=== PATIENT | female | born 1950 | race Caucasian/White ===

== ENCOUNTER 2021-09-05 09:46 | Inpatient (IN) ==
[2021-09-05] MEDS ORDERED: ceFAZolin 1 GM VIAL IV ONE ×2 (10:10→10:42)
--- NOTE | 2021-09-05 10:28 | Emergency Department Note ---
HPI General Chief complaint: Recheck/Abnormal Lab/Rx Stated complaint: infected wound Time Seen by Provider: 09/05/21 10:03 Source: patient Mode of arrival: ambulatory Limitations: no limitations History of Present Illness HPI Narrative: 71-year-old female with past medical history of rheumatoid arthritis, hypothyroidism, anemia, COPD, peripheral vascular disease, pulmonary fibrosis, and Felty syndrome presenting with right ankle swelling and pain. States she believes she suffered a bug bite about 2 weeks ago on the lateral side of her right ankle. Initially there was just some small puncture wounds but it progressed to redness, swelling, and pain in the area. She was started on an antibiotic 6 days ago and finished her last dose yesterday but the pain and swelling has persisted. She does not know what antibiotic she was given. She does not think the erythema has spread any further than where it was last week. Denies fever, numbness, weakness, paresthesias, vomiting, chest pain, or shortness of breath. Not on anticoagulation. No history of diabetes. Related Data Home Medications Medication Instructions Recorded Confirmed vitamin B complex 1 tab-cap PO QDAY 12/28/15 08/27/21 cholecalciferol (vitamin D3) PO 12/21/19 08/27/21 ohnvvodzwvwq-Mb-nact-minerals 1 tab PO DAILY 12/21/19 08/27/21 ascorbate calcium (vitamin C) 500 500 mg PO QDAY 05/28/21 08/27/21 mg tablet flaxseed oil 1,000 mg capsule 1,000 mg PO QDAY 05/28/21 08/27/21 ibuprofen 400 mg tablet 400 mg PO BID tab 06/03/21 08/27/21 Previous Rx's Medication Instructions Recorded Acapella or flutter valve #1 ea 09/30/18 omeprazole 20 mg capsule,delayed 20 mg PO QDAY #30 cap 07/03/21 release furosemide 20 mg tablet 10 mg PO QAM PRN #30 tab 07/11/21 levothyroxine 75 mcg tablet 75 mcg PO QDAY #90 tab 08/19/21 hydrocortisone 1 % topical cream 1 applic TOPICAL BID PRN #28.4 g 08/27/21 cephalexin 500 mg capsule 500 mg PO BID #14 cap 08/28/21 Allergies Allergy/AdvReac Type Severity Reaction Status Date / Time codeine AdvReac Mild jittery Verified 08/27/21 14:30 Review of Systems ROS ROS Narrative: Narrative: Constitutional: Denies fever and chills Eyes: Denies vision change ENT ED: Denies ear pain and throat pain Cardiovascular: Denies chest pain and palpitations Respiratory: Denies shortness of breath and cough Gastrointestinal: Denies abdominal pain, nausea and vomiting Genitourinary: Denies dysuria and frequency Musculoskeletal: Denies back pain Integumentary: Reports as per HPI Neurological: Denies headache and weakness Psychiatric: Denies anxiety and depression Endocrine: Denies fatigue and heat or cold intolerance Hematological/Lymphatic: Denies easy bleeding and easy bruising PFSH Narrative Patient History Narrative: Narrative: Medical/Surgical/Family History All Active Problems (Updated 09/05/21 @ 12:38 by Ousmane Ordoñez MD) Proteinuria (Chronic) Rheumatoid arthritis (Acute) Osteoarthrosis (Chronic) Iron deficiency anemia (Chronic) Hypothyroidism (Chronic) Chondromalacia, patella (Chronic) S/P partial hysterectomy (Chronic) Arthralgia (Chronic) Sinusitis, chronic (Chronic) COPD (chronic obstructive pulmonary disease) (Chronic) Palpitations (Chronic) Varicose veins of lower extremities (Chronic) Fatigue (Chronic) Depression (Chronic) Anxiety (Chronic) Other decreased white blood cell count (Chronic) Encounter for long-term (current) use of medications (Acute) Microalbuminuria (Chronic) Splenomegaly (Chronic) Atypical chest pain (Chronic) Abnormal weight loss (Chronic) Headache (Chronic) Shingles (Chronic) Postmenopausal state (Chronic) Bilateral leg edema (Chronic) Pulmonary fibrosis (Chronic) Seasonal allergic rhinitis (Chronic) Irritable bowel syndrome (Chronic) Encounter for long-term current use of high risk medication (Chronic) Leukopenia (Chronic) Cough (Chronic) Felty's syndrome (Chronic) Subcutaneous rheumatoid nodule (Chronic) Wellness examination (Chronic) Unexplained weight loss (Acute) HLD (hyperlipidemia) (Chronic) ILD (interstitial lung disease) (Chronic) Incontinence of urine in female (Acute) Anemia (Chronic) HARMONY (obstructive sleep apnea) (Chronic) Aspiration into airway (Chronic) Bronchiectasis (Chronic) Osteopenia (Acute) Atopic dermatitis (Chronic) Rash/skin eruption (Acute) Medicare annual wellness visit, initial (Acute) Encounter for HCV screening test for low risk patient (Acute) Generalized weakness (Acute) Neutropenia (Acute) Hypotension (Acute) Atrial fibrillation with RVR (Acute) Hospital discharge follow-up (Acute) Pericarditis (Acute) Medicare annual wellness visit, initial (Acute) Cellulitis of right leg (Acute) Medical History Abnormal weight loss Anemia Anxiety Arthralgia Aspiration into airway Atopic dermatitis Atrial fib/flutter, transient Atrial fibrillation with RVR Atypical chest pain Bilateral leg edema Bronchiectasis Chondromalacia, patella COPD (chronic obstructive pulmonary disease) Cough Depression Encounter for long-term (current) use of medications Encounter for long-term current use of high risk medication Fatigue Felty's syndrome Headache HLD (hyperlipidemia) Hospital discharge follow-up Hypotension Hypothyroidism ILD (interstitial lung disease) Incontinence of urine in female Iron deficiency anemia Irritable bowel syndrome Leukopenia Medicare annual wellness visit, initial Medicare annual wellness visit, initial HARMONY (obstructive sleep apnea) Sleep study split-night 06/10/2018 demonstrating mild sleep apnea and good response to 7 cm pressure CPAP Osteoarthrosis Osteopenia Other decreased white blood cell count Palpitations Pericarditis Postmenopausal state Proteinuria Pulmonary fibrosis Rheumatoid arthritis Seasonal allergic rhinitis Shingles Sinusitis, chronic Splenomegaly Subcutaneous rheumatoid nodule Varicose veins of lower extremities Wellness examination 02/2017 Surgical History S/P partial hysterectomy 1979 Family History Mother Cerebrovascular accident (CVA) Arthritis Brother Hemorrhagic diathesis Diabetes mellitus Father Cardiac arrest Daughter Asthma Son Hemorrhagic diathesis Epilepsy Aunt Leukemia Social History Smoking Status: Former smoker Alcohol Intake Frequency: does not drink Substance Use: does not use Exam Narrative Narrative: Narrative: General Limitations: no limitations General appearance: Present alert and in no apparent distress Head Head: Present atraumatic and normocephalic Eye Eye: Present normal appearance, PERRL and EOMI; Absent scleral icterus and conjunctival injection ENT ENT: Present mucous membranes moist Neck Neck: Present trachea midline; Absent lymphadenopathy and thyromegaly Chest Chest: Present symmetric chest wall rise Respiratory Respiratory: Present normal lung sounds bilaterally; Absent respiratory distress, wheezes, stridor, accessory muscle use and prolonged expiratory phase Cardiovascular Cardiovascular: Present regular rate and normal rhythm; Absent systolic murmur and diastolic murmur Adbominal Abdominal: Present soft; Absent distention, tenderness, guarding, rebound, rigidity, organomegaly and mass Expanded Lower Extremity Ankle: Present tenderness, swelling, erythema and other (2 scabbed ulceration areas over the lateral right distal lower leg with surrounding erythema extending into the top of the foot and one third up the leg. Area is swollen, erythematous, and warm. Range of motion intact, no sensory deficits. 2+ DP pulse.) Back Back: Absent CVA tenderness (R), CVA tenderness (L) and spinous process te nderness Neurological Neurological: Present alert and oriented X3 Psychiatric Psychiatric: Present normal affect and normal mood Skin Skin: Present warm (WNL) and dry Course Consultations Consultation #1: Discussed admission for right lower leg cellulitis with Dr. Collier. Time: 12:32 Vital Signs Vital signs: Vital Signs Temperature 97.5 F 09/05/21 09:47 Pulse Rate 99 H 09/05/21 09:47 Respiratory Rate 19 09/05/21 09:47 Blood Pressure 121/65 09/05/21 09:47 Temperature 97.5 F 09/05/21 09:47 Pulse Rate 64 09/05/21 12:00 Respiratory Rate 19 09/05/21 09:47 Blood Pressure 131/73 09/05/21 12:00 Pulse Oximetry (%) 100 09/05/21 12:00 MDM MDM Narrative Medical decision making narrative: 71-year-old female presenting with right leg swelling and redness. Right lateral ankle appears cellulitic with erythema extending to the top of the foot and slightly up the leg. No streaking. Vital signs normal. She has already completed a 1 week course of antibiotics. Will obtain labs, x-ray, and give dose of IV cefazolin in the ED. Labs notable for neutropenia which is chronic and secondary to her Felty syndr ome. Her ANC is slightly more elevated than her baseline which may indicate a more systemic infection. X-ray shows tissue edema consistent with cellulitis and possible lucencies of the lateral malleolus which may indicate early osteomyelitis. Given her neutropenia and failed outpatient antibiotic regimen, will admit for IV antibiotics and monitoring. Dose of vancomycin ordered. Discussed with admitting hospitalist, Dr. Everett. Lab Data Lab results reviewed: Yes I reviewed the patient's lab results. Result diagrams: 09/05/21 10:10 09/05/21 10:10 Labs: Lab Results 09/05/21 09/05/21 Range/Units 10:10 10:10 WBC 1.6 L (4.5-11.0) K/mcL RBC 4.70 (3.59-5.38) M/mcL Hgb 11.4 (11.2-15.7) g/dL Hct 36.2 (34.1-44.9) % MCV 77.0 L (80.0-100.0) fL MCH 24.3 L (26.0-34.0) pg MCHC 31.5 (31.0-36.0) g/dL RDW 19.2 H (11.5-14.5) % Plt Count 173 (140-440) K/mcL MPV 9.9 (7.4-10.4) fL Neut % (Auto) 14.8 L (38.0-78.0) % Lymph % (Auto) 46.8 (15.5-49.0) % [place] % (Auto) 33.3 H (1.0-12.0) % Eos % (Auto) 4.5 (0.0-7.0) % Baso % (Auto) 0.6 (0.0-2.0) % Lymph # (Auto) 0.73 L (1.50-4.80) K/mcL [place] # (Auto) 0.52 (0.10-0.90) K/mcL Eos # (Auto) 0.07 (0.00-0.70) K/mcL Baso # (Auto) 0.01 (0.00-0.30) K/mcL Absolute Neutrophils 0.23 L* (1.80-8.00) K/mcL Sodium 136 (133-145) mmol/L Potassium 4.0 (3.3-5.1) mmol/L Chloride 103 (96-108) mmol/L Carbon Dioxide 28 (22-30) mmol/L Anion Gap 5.0 L (8.0-16.0) BUN 14 (8-23) mg/dL Creatinine 0.5 L (0.6-1.1) mg/dL GFR Calculation 96 Glucose 85 (70-105) mg/dL Calcium 8.4 L (8.6-10.4) mg/dL Total Bilirubin 0.4 (0.1-1.0) mg/dL AST 22 (<32) U/L ALT 11 (<40) U/L Alkaline Phosphatase 60 (39-117) U/L C-Reactive Protein 1.90 H (0.03-0.80) mg/dL Total Protein 7.6 (5.9-8.4) gm/dL Albumin 3.6 (3.2-5.2) gm/dL Globulin 4.0 H (2.2-3.7) gm/dL Albumin/Globulin Ratio 0.9 L (1.0-2.3) Radiology Data Radiology results reviewed: Yes I reviewed the patient's radiology results. Radiology results narrative: Ordering Physician: Ousmane Ordoñez M.D. Date of Service: 09/05/21 Procedure(s): XR ankle RT complete 3VW Accession Number(s): [id number] CLINICAL INFORMATION: cellulitis, ulcerations COMPARISON: None. FINDINGS: Moderate diffuse soft tissue swelling is compatible cellulitis. There are two radiolucent foci in the distal lateral malleolus. One appears to be eroding the articular surface. Each of these approximately 10 mm. No other osseous abnormalities. The ankle mortise and talocalcaneal joints normal with alignment arthritic change. IMPRESSION: Moderate diffuse soft tissue swelling compatible cellulitis Two lucent foci in the distal lateral malleolus each approximately 10 mm. these are likely degenerative but could represent foci of osteomyelitis Interpreted and Authenticated by: Silverio Castro 09/05/21 Pulse Oximetry Data Pulse Ox %: 100 Interpretation: normal Discharge Plan Patient/Caregiver Discharge Instructions Pt seen by [facility]/PA only: No Clinical Impression: Cellulitis of right leg Patient Disposition: Xfer As Inpt ([facility]) Condition: Fair Follow up with: Kenia Desai DO [Primary Care Provider] - Prescriptions: No Action omeprazole 20 mg capsule,delayed release(DR/EC) 20 mg PO QDAY Qty: 30 RF: 5 furosemide 20 mg tablet 10 mg PO QAM PRN (Reason: edema) Qty: 30 RF: 1 levothyroxine 75 mcg tablet 75 mcg PO QDAY Qty: 90 RF: 0 cephalexin 500 mg capsule 500 mg PO BID Qty: 14 RF: 0 vitamin B complex [B Complex-Vitamin B12] tablet 1 tab-cap PO QDAY RF: 0 cholecalciferol (vitamin D3) PO RF: 0 tpkcthpxbthj-Xa-tnhd-minerals tablet 1 tab PO DAILY RF: 0 (DME) Acapella or flutter valve Qty: 1 RF: 0 ascorbate calcium (vitamin C) 500 mg tablet 500 mg PO QDAY RF: 0 flaxseed oil 1,000 mg capsule 1,000 mg PO QDAY RF: 0 hydrocortisone 1 % cream 1 applic topical BID PRN (Reason: itching) Qty: 28.4 RF: 2 ibuprofen 400 mg tablet 400 mg PO BID RF: 0
[2021-09-05 11:21] LABS: Basophils # (Auto) 0.01 K/mcL (0.00-0.30); Basophils % (Auto) 0.6 % (0.0-2.0); Eosinophils # (Auto) 0.07 K/mcL (0.00-0.70); Eosinophils % (Auto) 4.5 % (0.0-7.0); Hematocrit 36.2 % (34.1-44.9); Hemoglobin 11.4 g/dL (11.2-15.7); Lymphocytes # (Auto) 0.73 K/mcL (1.50-4.80); Lymphocytes % (Auto) 46.8 % (15.5-49.0); Mean Corpuscular HGB Conc 31.5 g/dL (31.0-36.0); Mean Platelet Volume 9.9 fL (7.4-10.4); Monocytes # (Auto) 0.52 K/mcL (0.10-0.90); Monocytes % (Auto) 33.3 % (1.0-12.0); Neutrophils % (Auto) 14.8 % (38.0-78.0); Platelet Count 173 K/mcL (140-440); Red Cell Distribution Width 19.2 % (11.5-14.5); WBC 1.6 K/mcL (4.5-11.0)
[2021-09-05 11:30] LABS: ALT/SGPT 11 U/L (<40); AST/SGOT 22 U/L (<32); Albumin 3.6 gm/dL (3.2-5.2); Albumin/Globulin Ratio 0.9 (1.0-2.3); Alkaline Phosphatase 60 U/L (39-117); Bilirubin,Total 0.4 mg/dL (0.1-1.0); Blood Urea Nitrogen 14 mg/dL (8-23); Calcium 8.4 mg/dL (8.6-10.4); Carbon Dioxide 28 mmol/L (22-30); Chloride 103 mmol/L (96-108); Glomerular Filtration Rate 96; Glucose 85 mg/dL (70-105)
--- NOTE | 2021-09-05 11:44 | XRay Report ---
CLINICAL INFORMATION: cellulitis, ulcerations COMPARISON: None. FINDINGS: Moderate diffuse soft tissue swelling is compatible cellulitis. There are two radiolucent foci in the distal lateral malleolus. One appears to be eroding the articular surface. Each of these approximately 10 mm. No other osseous abnormalities. The ankle mortise and talocalcaneal joints normal with alignment arthritic change. IMPRESSION: Moderate diffuse soft tissue swelling compatible cellulitis Two lucent foci in the distal lateral malleolus each approximately 10 mm. these are likely degenerative but could represent foci of osteomyelitis Interpreted and Authenticated by: Silverio Castro 09/05/21
[2021-09-05] MEDS ORDERED: VANCOMYCIN 1,500 MG in 0.9 % SODIUM CHLORIDE 500 ML IV ONE (12:30)
--- NOTE | 2021-09-05 13:11 | Internal Med History&Physical ---
HPI History of Present Illness Patient information: Note initiated : 09/05/21 at 12:56 pm Service Date, if different from initiated Date: [] Patient: Cyndie Carr a 71 y/o F admitted on for infected wound. Chief Complaint: [] History of present illness: Ms. Carr is a 71 year old F Patient presents with right ankle redness and swelling. Patient states she first saw her primary care doctor almost a week and half ago and was prescribed an antibiotic. 4 days later on 31 August she went to [facility] ER. She was instructed to finish the course of antibiotics. She states she believes she was bitten by a bug or possibly scratched her skin and states that she had 2 little black spots when she first presented to the doctor and then when she went to [place] ER they were larger. Patient states that her redness although seems to have improved a little bit she has had increased swelling and increased pain. The black spots on her lateral ankle have enlarged. Patient denies fever chills. 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 Review of Systems: Pertinent positives as above. Denies headache/fever/chills/nausea/vomiting/chest or abdominal pain/cough/dyspnea/diarrhea. Remaining 10 point review of system reviewed negative PFSH PFSH All Active Problems (Updated 09/05/21 @ 12:38 by Ousmane Ordoñez MD) Proteinuria (Chronic) Rheumatoid arthritis (Acute) Osteoarthrosis (Chronic) Iron deficiency anemia (Chronic) Hypothyroidism (Chronic) Chondromalacia, patella (Chronic) S/P partial hysterectomy (Chronic) Arthralgia (Chronic) Sinusitis, chronic (Chronic) COPD (chronic obstructive pulmonary disease) (Chronic) Palpitations (Chronic) Varicose veins of lower extremities (Chronic) Fatigue (Chronic) Depression (Chronic) Anxiety (Chronic) Other decreased white blood cell count (Chronic) Encounter for long-term (current) use of medications (Acute) Microalbuminuria (Chronic) Splenomegaly (Chronic) Atypical chest pain (Chronic) Abnormal weight loss (Chronic) Headache (Chronic) Shingles (Chronic) Postmenopausal state (Chronic) Bilateral leg edema (Chronic) Pulmonary fibrosis (Chronic) Seasonal allergic rhinitis (Chronic) Irritable bowel syndrome (Chronic) Encounter for long-term current use of high risk medication (Chronic) Leukopenia (Chronic) Cough (Chronic) Felty's syndrome (Chronic) Subcutaneous rheumatoid nodule (Chronic) Wellness examination (Chronic) Unexplained weight loss (Acute) HLD (hyperlipidemia) (Chronic) ILD (interstitial lung disease) (Chronic) Incontinence of urine in female (Acute) Anemia (Chronic) HARMONY (obstructive sleep apnea) (Chronic) Aspiration into airway (Chronic) Bronchiectasis (Chronic) Osteopenia (Acute) Atopic dermatitis (Chronic) Rash/skin eruption (Acute) Medicare annual wellness visit, initial (Acute) Encounter for HCV screening test for low risk patient (Acute) Generalized weakness (Acute) Neutropenia (Acute) Hypotension (Acute) Atrial fibrillation with RVR (Acute) Hospital discharge follow-up (Acute) Pericarditis (Acute) Medicare annual wellness visit, initial (Acute) Cellulitis of right leg (Acute) Medical History Abnormal weight loss Anemia Anxiety Arthralgia Aspiration into airway Atopic dermatitis Atrial fib/flutter, transient Atrial fibrillation with RVR Atypical chest pain Bilateral leg edema Bronchiectasis Chondromalacia, patella COPD (chronic obstructive pulmonary disease) Cough Depression Encounter for long-term (current) use of medications Encounter for long-term current use of high risk medication Fatigue Felty's syndrome Headache HLD (hyperlipidemia) Hospital discharge follow-up Hypotension Hypothyroidism ILD (interstitial lung disease) Incontinence of urine in female Iron deficiency anemia Irritable bowel syndrome Leukopenia Medicare annual wellness visit, initial Medicare annual wellness visit, initial HARMONY (obstructive sleep apnea) Sleep study split-night 06/10/2018 demonstrating mild sleep apnea and good response to 7 cm pressure CPAP Osteoarthrosis Osteopenia Other decreased white blood cell count Palpitations Pericarditis Postmenopausal state Proteinuria Pulmonary fibrosis Rheumatoid arthritis Seasonal allergic rhinitis Shingles Sinusitis, chronic Splenomegaly Subcutaneous rheumatoid nodule Varicose veins of lower extremities Wellness examination 02/2017 Surgical History S/P partial hysterectomy 1980 Family History Mother Cerebrovascular accident (CVA) Arthritis Brother Hemorrhagic diathesis Diabetes mellitus Father Cardiac arrest Daughter Asthma Son Hemorrhagic diathesis Epilepsy Aunt Leukemia Social History marital status: single physical activity: other details: Legs frequency: 1-2 times per week smoking status: Former smoker quit date: 11/16/91 pack-years: 30 alcohol intake frequency: does not drink substance use type: does not use MEDS/ALLERGIES Home Medications and Allergies Home Medications Medication Instructions Recorded Confirmed Type vitamin B complex 1 tab-cap PO QDAY 12/28/15 08/27/21 History Acapella or flutter valve #1 ea 09/30/18 08/27/21 Rx cholecalciferol (vitamin D3) PO 12/21/19 08/27/21 History priuybjwingj-Zs-ybdt-minerals 1 tab PO DAILY 12/21/19 08/27/21 History ascorbate calcium (vitamin C) 500 500 mg PO QDAY 05/28/21 08/27/21 History mg tablet flaxseed oil 1,000 mg capsule 1,000 mg PO QDAY 05/28/21 08/27/21 History ibuprofen 400 mg tablet 400 mg PO BID tab 06/03/21 08/27/21 History omeprazole 20 mg capsule,delayed 20 mg PO QDAY #30 cap 07/03/21 08/27/21 Rx release furosemide 20 mg tablet 10 mg PO QAM PRN #30 tab 07/11/21 08/27/21 Rx levothyroxine 75 mcg tablet 75 mcg PO QDAY #90 tab 08/19/21 08/27/21 Rx hydrocortisone 1 % topical cream 1 applic TOPICAL BID PRN #28.4 g 08/27/21 08/27/21 Rx cephalexin 500 mg capsule 500 mg PO BID #14 cap 08/28/21 Rx Allergies Allergy/AdvReac Type Severity Reaction Status Date / Time codeine AdvReac Mild jittery Verified 08/27/21 14:30 EXAM Constitutional Vitals: Temp Pulse Resp BP Pulse Ox 97.5 F 66 19 131/87 100 09/05/21 09:47 09/05/21 12:46 09/05/21 09:47 09/05/21 12:46 09/05/21 12:46 Exam: General: Alert, Awake, No acute Distress Eyes/N/T: EOMI, PERRL, Head/Neck: neck supple, normocephalic atraumatic CV: RRR, No murmurs, normal s1/s2 Pulm: Clear b/l, no wheezing/rhonchi/rales Abd: soft, nontender, +BS x4 Ext: no clubbing/cyanosis/edema to LLE. Right ankle/foot with erythema/edema/TTP & 2 small superficial necrotic lesions lateral ankle Neuro: Alert, no focal deficits, moves all extremities, CN 2-12 grossly intact, symmetrical strength b/l upper/lower, sensations intact b/l upper/lower Skin: warm/dry DATA Data Completed and Pending Labs: Labs from last 24 hours 09/05/21 09/05/21 10:10 10:10 WBC 1.6 L RBC 4.70 Hgb 11.4 Hct 36.2 MCV 77.0 L MCH 24.3 L MCHC 31.5 RDW 19.2 H Plt Count 173 MPV 9.9 Neut % (Auto) 14.8 L Lymph % (Auto) 46.8 [place] % (Auto) 33.3 H Eos % (Auto) 4.5 Baso % (Auto) 0.6 Lymph # (Auto) 0.73 L [place] # (Auto) 0.52 Eos # (Auto) 0.07 Baso # (Auto) 0.01 Absolute Neutrophils 0.23 L* ESR Pending Sodium 136 Potassium 4.0 Chloride 103 Carbon Dioxide 28 Anion Gap 5.0 L BUN 14 Creatinine 0.5 L GFR Calculation 96 Glucose 85 Calcium 8.4 L Total Bilirubin 0.4 AST 22 ALT 11 Alkaline Phosphatase 60 C-Reactive Protein 1.90 H Total Protein 7.6 Albumin 3.6 Globulin 4.0 H Albumin/Globulin Ratio 0.9 L A/P Narrative A/P Narrative: A: *Right Ankle cellulitis with tissue necrosis: failded outpt abx *RA/Felty's syndrome w/chronic neutropenia: Follows with Dr. Mathur *Pulmonary fibrosis/bronchiectasis: Follows with Dr. Moss *h/o systolic(40/45)/diastolic(I) CHF *HARMONY: *Hypothyroidism P: -Vanco/cefepime, pending BC & mrsa screen -Podiatry/wound consult -MRI ankle -Reconcile home medications -pt/ot -ppx: lovenox full code Time Spent With Patient Time: Total time spent is greater than 50% in coordination of care (as documented) at patient's floor/unit and/or counseling patient:
[2021-09-05 13:12] LABS: Erythrocyte Sedimentation Rate 20 mm/hr (0-20)
--- NOTE | 2021-09-05 13:47 | Orthopedic Consult Note ---
HPI Data of Consult Consult date: 09/05/21 Primary Care Provider: Kenia Desai DO Consult Narrative cc:: Chief complaint: Bug bite right leg with redness Patient is a pleasant 71-year-old lady who recently had a bug bite a couple weeks ago. Her leg became red and swollen and she obtained antibiotics for this. The redness continued to get worse and extend up her leg. Now there are 2 black spots on the side of her ankle and her pain continues to increase. The swelling has decreased somewhat. PFSH PFSH All Active Problems (Updated 09/05/21 @ 12:38 by Ousmane Ordoñez MD) Proteinuria (Chronic) Rheumatoid arthritis (Acute) Osteoarthrosis (Chronic) Iron deficiency anemia (Chronic) Hypothyroidism (Chronic) Chondromalacia, patella (Chronic) S/P partial hysterectomy (Chronic) Arthralgia (Chronic) Sinusitis, chronic (Chronic) COPD (chronic obstructive pulmonary disease) (Chronic) Palpitations (Chronic) Varicose veins of lower extremities (Chronic) Fatigue (Chronic) Depression (Chronic) Anxiety (Chronic) Other decreased white blood cell count (Chronic) Encounter for long-term (current) use of medications (Acute) Microalbuminuria (Chronic) Splenomegaly (Chronic) Atypical chest pain (Chronic) Abnormal weight loss (Chronic) Headache (Chronic) Shingles (Chronic) Postmenopausal state (Chronic) Bilateral leg edema (Chronic) Pulmonary fibrosis (Chronic) Seasonal allergic rhinitis (Chronic) Irritable bowel syndrome (Chronic) Encounter for long-term current use of high risk medication (Chronic) Leukopenia (Chronic) Cough (Chronic) Felty's syndrome (Chronic) Subcutaneous rheumatoid nodule (Chronic) Wellness examination (Chronic) Unexplained weight loss (Acute) HLD (hyperlipidemia) (Chronic) ILD (interstitial lung disease) (Chronic) Incontinence of urine in female (Acute) Anemia (Chronic) HARMONY (obstructive sleep apnea) (Chronic) Aspiration into airway (Chronic) Bronchiectasis (Chronic) Osteopenia (Acute) Atopic dermatitis (Chronic) Rash/skin eruption (Acute) Medicare annual wellness visit, initial (Acute) Encounter for HCV screening test for low risk patient (Acute) Generalized weakness (Acute) Neutropenia (Acute) Hypotension (Acute) Atrial fibrillation with RVR (Acute) Hospital discharge follow-up (Acute) Pericarditis (Acute) Medicare annual wellness visit, initial (Acute) Cellulitis of right leg (Acute) Medical History Abnormal weight loss Anemia Anxiety Arthralgia Aspiration into airway Atopic dermatitis Atrial fib/flutter, transient Atrial fibrillation with RVR Atypical chest pain Bilateral leg edema Bronchiectasis Chondromalacia, patella COPD (chronic obstructive pulmonary disease) Cough Depression Encounter for long-term (current) use of medications Encounter for long-term current use of high risk medication Fatigue Felty's syndrome Headache HLD (hyperlipidemia) Hospital discharge follow-up Hypotension Hypothyroidism ILD (interstitial lung disease) Incontinence of urine in female Iron deficiency anemia Irritable bowel syndrome Leukopenia Medicare annual wellness visit, initial Medicare annual wellness visit, initial HARMONY (obstructive sleep apnea) Sleep study split-night 06/10/2018 demonstrating mild sleep apnea and good response to 7 cm pressure CPAP Osteoarthrosis Osteopenia Other decreased white blood cell count Palpitations Pericarditis Postmenopausal state Proteinuria Pulmonary fibrosis Rheumatoid arthritis Seasonal allergic rhinitis Shingles Sinusitis, chronic Splenomegaly Subcutaneous rheumatoid nodule Varicose veins of lower extremities Wellness examination 02/2017 Surgical History S/P partial hysterectomy 1980 Family History Mother Cerebrovascular accident (CVA) Arthritis Brother Hemorrhagic diathesis Diabetes mellitus Father Cardiac arrest Daughter Asthma Son Hemorrhagic diathesis Epilepsy Aunt Leukemia Social History marital status: single physical activity: other details: Legs frequency: 1-2 times per week smoking status: Former smoker quit date: 11/16/91 pack-years: 30 alcohol intake frequency: does not drink substance use type: does not use MEDS/ALLERGIES Home Medications and Allergies Home Medications Medication Instructions Recorded Confirmed Type vitamin B complex 1 tab-cap PO QDAY 12/28/15 08/27/21 History Acapella or flutter valve #1 ea 09/30/18 08/27/21 Rx cholecalciferol (vitamin D3) PO 12/21/19 08/27/21 History frntqstpyzbv-Wq-lmps-minerals 1 tab PO DAILY 12/21/19 08/27/21 History ascorbate calcium (vitamin C) 500 500 mg PO QDAY 05/28/21 08/27/21 History mg tablet flaxseed oil 1,000 mg capsule 1,000 mg PO QDAY 05/28/21 08/27/21 History ibuprofen 400 mg tablet 400 mg PO BID tab 06/03/21 08/27/21 History omeprazole 20 mg capsule,delayed 20 mg PO QDAY #30 cap 07/03/21 08/27/21 Rx release furosemide 20 mg tablet 10 mg PO QAM PRN #30 tab 07/11/21 08/27/21 Rx levothyroxine 75 mcg tablet 75 mcg PO QDAY #90 tab 08/19/21 08/27/21 Rx hydrocortisone 1 % topical cream 1 applic TOPICAL BID PRN #28.4 g 08/27/21 08/27/21 Rx cephalexin 500 mg capsule 500 mg PO BID #14 cap 08/28/21 Rx Allergies Allergy/AdvReac Type Severity Reaction Status Date / Time codeine AdvReac Mild jittery Verified 08/27/21 14:30 Physical Examination Narrative Narrative: Narrative: Ankle & Foot right: Ankle appearance: swelling, erythema and other (To central fibular area necrotic lesions approximately 2 cm in diameter that are nonpurulent nondraining, associated with the lateral aspect and apex of swelling, consistent with puncture or insect venom is bite) Foot appearance: swelling and erythema A/P Time Spent With Patient Time: Total time spent is greater than 50% in coordination of care (as documented) at patient's floor/unit and/or counseling patient: Cellulitis with toxic skin necrosis related to insect bite Patient likely to receive incision and drainage based on MRI results if there be an abscess Debridement of necrotic tissue important with drainage of wound and any abscesses found Will determine based on MRI results
[2021-09-05] MEDS ORDERED: METOCLOPRAMIDE 10 MG/2 ML VIAL IV PRN (14:16)
[2021-09-05] MEDS ORDERED: ONDANSETRON 4 MG/2 ML VIAL IV PRN (14:16)
[2021-09-05] MEDS ORDERED: IPRATROPIUM/ALBUTEROL 3 ML AMPUL.NEB NEB PRN (14:16)
[2021-09-05] MEDS ORDERED: HYDROcodone/APAP 5/325MG TABLET PO PRN (14:16)
[2021-09-05] MEDS ORDERED: POLYETHYLENE GLYCOL 3350 17 GM PACKET PO PRN (14:16)
[2021-09-05] MEDS ORDERED: SENNOSIDES 1 TABLET PO PRN (14:16)
[2021-09-05] MEDS ORDERED: POTASSIUM CHLORIDE 20 MEQ TABLET PO PRN ×2 (14:16)
[2021-09-05] MEDS ORDERED: VANCOMYCIN PER PHARMACY IV SCH (14:16)
[2021-09-05] MEDS ORDERED: MAGNESIUM SULFATE 2 GM/50 ML BAG IV PRN (14:16)
[2021-09-05] MEDS ORDERED: POTASSIUM CHLORIDE 40 MEQ in DEXTROSE 5% IN WATER 500 ML IV PRN (14:16)
[2021-09-05] MEDS: CEFEPIME 2 GM VIAL IV SCH (16:36)
[2021-09-05] MEDS: 0.9 % SODIUM CHLORIDE 10 ML SYRINGE IV SCH ×2 (16:36→21:17)
--- NOTE | 2021-09-05 18:41 | Magnetic Resonance Report ---
CLINICAL INFORMATION: Diffuse ankle cellulitis. Evaluate for osteomyelitis. TECHNIQUE: Axial T1-T2 proton-density, coronal T1 STIR proton density and sagittal proton-density weighted images were obtained through the right ankle COMPARISON: Plain films 09/05/2021 FINDINGS: Moderate diffuse cellulitis throughout the subcutaneous fat of the ankle and visualized foot appreciated. There is a 10 mm chronic erosion in the cortex of the distal lateral malleolus. This is well-circumscribed and demonstrates decreased signal-would not be compatible with infection. Marrow signal is otherwise normal no evidence of osteomyelitis. The ankle mortise and talocalcaneal joint visualized joints of the midfoot are normal in width and alignment without arthritic change. Tendons and ligaments are normal IMPRESSION: Diffuse cellulitis. No evidence of osteomyelitis Interpreted and Authenticated by: Silverio Castro 09/05/21
[2021-09-05] MEDS: DOCUSATE SODIUM 100 MG CAPSULE PO SCH (21:11)
[2021-09-06] MEDS: CEFEPIME 2 GM VIAL IV SCH ×3 (00:20→20:14)
[2021-09-06] MEDS: 0.9 % SODIUM CHLORIDE 10 ML SYRINGE IV SCH ×3 (04:30→20:14)
--- NOTE | 2021-09-06 07:34 | Internal Med Progress Note ---
SUBJECTIVE Subjective Patient information: Note initiated : 09/06/21 at 7:30 am Service Date, if different from initiated Date: [] Patient: Cyndie Carr a 71 y/o F admitted on 09/05/21 for infected wound. Chief Complaint: [] Interval history: History of present illness: Ms. Carr is a 71 year old F Patient presents with right ankle redness and swelling. Patient states she first saw her primary care doctor almost a week and half ago and was prescribed an antibiotic. 4 days later on 31 August she went to [facility] ER. She was instructed to finish the course of antibiotics. She states she believes she was bitten by a bug or possibly scratched her skin and states that she had 2 little black spots when she first presented to the doctor and then when she went to [place] ER they were larger. Patient states that her redness although seems to have improved a little bit she has had increased swelling and increased pain. The black spots on her lateral ankle have enlarged. Patient denies fever chills. 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 09/06 Patient not postop I&D. Tolerated procedure well. Patient comfortable in bed. No overnight event or new complaints. Chronic cough. Review of Systems: denies headache/fever/chills/nausea/vomiting/chest or abdominal pain/diarrhea. Otherwise see above. Constitutional Vitals: Vital Signs Temp Pulse Resp BP Pulse Ox 98.2 F 69 18 120/71 97 09/06/21 04:00 09/06/21 04:00 09/06/21 04:00 09/06/21 04:00 09/06/21 04:00 Period Temp Pulse Resp BP Sys/Davila Pulse Ox Last 24 Hr 97.2 F-98.2 F 60-99 18-19 116-138/62-87 97-100 Intake and Output 09/05/21 09/06/21 09/06/21 21:59 05:59 13:59 Intake Total 296 1300 Output Total 500 Balance 296 1300 -500 Weight 56.245 kg Intake & Output: Intake & Output 09/05/21 09/06/21 09/06/21 21:59 05:59 13:59 Intake Total 296 1300 Output Total 500 Balance 296 1300 -500 Weight 56.245 kg Intake: IV 56 Vancomycin 1,500 mg In Sodium 56 Chloride 0.9% 500 ml @ 333.3 mls/hr IV ONCE ONE Rx#: [id number] Oral 240 1300 Output: Void Amount 500 Other: Meal Lunch Percent of Meal Consumed 100% Feeding Ability Independent Urine Color Bright Yellow Stool Consistency Loose # Voids 1 1 # Bowel Movements 1 Exam: General: Alert, Awake, No acute Distress Eyes/N/T: EOMI, , Head/Neck: neck supple, CV: RRR, No murmurs, Pulm: Clear b/l, no wheezing/rhonchi/rales Abd: soft, nontender, +BS x4 Ext: no clubbing/cyanosis/edema to LLE. Right ankle/foot in dressings Neuro: Alert, no focal deficits, moves all extremities, Skin: warm/dry OBJ DATA Labs CBC & Chem 7: 09/06/21 05:51 09/06/21 05:51 Labs: Abnormal Lab Results 09/05/21 09/05/21 10:10 10:10 WBC 1.6 L MCV 77.0 L MCH 24.3 L RDW 19.2 H Neut % (Auto) 14.[address] [place] % (Auto) 33.3 H Lymph # (Auto) 0.73 L Absolute Neutrophils 0.23 L* Anion Gap 5.0 L Creatinine 0.5 L Calcium 8.4 L C-Reactive Protein 1.90 H Globulin 4.0 H Albumin/Globulin Ratio 0.9 L Meds: Medications Acetaminophen (Acetaminophen 325 Mg Tablet) 650 mg PO Q6HP PRN; Protocol PRN Reason: Per Pain Protocol/Fever > 101 Hydrocodone Bitart/Acetaminophen (Hydrocodone/Apap 5/325mg Tablet) 1 tab PO Q4HP PRN PRN Reason: PAIN LEVEL 3-6 Albuterol/Ipratropium (Ipratropium/Albuterol 3 Ml Ampul.Neb) 3 ml NEB Q4HP PRN PRN Reason: Shortness Of Breath Albuterol/Ipratropium (Ipratropium/Albuterol 3 Ml Ampul.Neb) 3 ml NEB ONCE PRN PRN Reason: Shortness Of Breath Stop: 09/06/21 20:00 Cefepime HCl (Cefepime 2 Gm Vial) 2 gm IV Q12H [facility]; Protocol Last Admin: 09/06/21 00:20 Dose: 2 gm Documented by: Docusate Sodium (Docusate Sodium 100 Mg Capsule) 100 mg PO BID [facility] Last Admin: 09/05/21 21:11 Dose: Not Given Documented by: Enoxaparin Sodium (Enoxaparin 40 Mg/0.4 Ml Syringe) 40 mg SQ DAILY [facility] Potassium Chloride 40 meq/ (Dextrose) 520 mls @ 130 mls/hr IV UD PRN PRN Reason: Potassium < 3 Magnesium Sulfate (Magnesium Sulfate) 2 gm in 50 mls @ 50 mls/hr IV UD PRN PRN Reason: Magnesium </= 1.6 Vancomycin HCl 1,000 mg/ (Sodium Chloride) 250 mls @ 250 mls/hr IV Q24H [facility] Metoclopramide HCl (Metoclopramide 10 Mg/2 Ml Vial) 10 mg IV Q6HP PRN PRN Reason: Nausea And Vomiting Mupirocin (Mupirocin Oint 2% 22gm) 1 dose NARES BID [facility] Ondansetron HCl (Ondansetron 4 Mg/2 Ml Vial) 4 mg IV Q4HP PRN PRN Reason: Nausea And Vomiting Polyethylene Glycol (Polyethylene Glycol 3350 17 Gm Packet) 17 gm PO DAILYP PRN PRN Reason: Constipation Potassium Chloride (Potassium Chloride 20 Meq Tablet) 40 meq PO UD PRN PRN Reason: Potssium is 3-3.5 Potassium Chloride (Potassium Chloride 20 Meq Tablet) 40 meq PO UD PRN PRN Reason: Potassium < 3 Scopolamine (Scopolamine 1 Patch Patch) 1 patch TOPICAL PREOP PRN PRN Reason: Nausea And Vomiting Stop: 09/06/21 20:00 Senna (Sennosides 1 Tablet) 2 tab PO DAILYP PRN PRN Reason: Constipation Sodium Chloride (0.9 % Sodium Chloride 10 Ml Syringe) 10 ml IV Q8 [facility] Last Admin: 09/06/21 04:30 Dose: 10 ml Documented by: Vancomycin HCl (Vancomycin Per Pharmacy) 1 order IV UD [facility]; Protocol A/P Narrative A/P Narrative: A: *Right Ankle cellulitis with tissue necrosis: failed outpt abx. s/p I&D (09/06) *RA/Felty's syndrome w/chronic neutropenia: Follows with Dr. Mathur *Pulmonary fibrosis/bronchiectasis: Follows with Dr. Moss *h/o systolic(40/45)/diastolic(I) CHF: *HARMONY: *Hypothyroidism P: -Vanco, cefepime likely to rocephin , pending BC & mrsa screen (+) -Podiatry/wound following, - -pt/ot -ppx: lovenox full code Time Spent With Patient Time: Total time spent is greater than 50% in coordination of care (as documented) at patient's floor/unit and/or counseling patient: QUALITY VTE Deep Vein Thrombosis/Pulmonary Embolism Present on Admission: No
[2021-09-06] MEDS ORDERED: FUROSEMIDE 20 MG TABLET PO PRN (07:36)
[2021-09-06 07:56] LABS: Hematocrit 35.4 % (34.1-44.9); Hemoglobin 10.9 g/dL (11.2-15.7); Mean Cell Volume 76.5 fL (80.0-100.0); Mean Corpuscular HGB Conc 30.8 g/dL (31.0-36.0); Platelet Count 168 K/mcL (140-440); RBC 4.63 M/mcL (3.59-5.38); Red Cell Distribution Width 19.1 % (11.5-14.5); WBC 1.7 K/mcL (4.5-11.0)
[2021-09-06] MEDS ORDERED: IPRATROPIUM/ALBUTEROL 3 ML AMPUL.NEB NEB PRN ×2 (08:00→09:05)
[2021-09-06] MEDS ORDERED: SCOPOLAMINE 1 PATCH PATCH TOPICAL PRN (08:00)
[2021-09-06 08:18] LABS: ALT/SGPT 10 U/L (<40); AST/SGOT 16 U/L (<32); Albumin 3.4 gm/dL (3.2-5.2); Albumin/Globulin Ratio 0.9 (1.0-2.3); Alkaline Phosphatase 59 U/L (39-117); Bilirubin,Direct < 0.2 mg/dL (0-0.3); Bilirubin,Total 0.4 mg/dL (0.1-1.0); Blood Urea Nitrogen 14 mg/dL (8-23); Calcium 8.5 mg/dL (8.6-10.4); Carbon Dioxide 23 mmol/L (22-30); Chloride 102 mmol/L (96-108); Globulin 3.6 gm/dL (2.2-3.7); Glomerular Filtration Rate 104; Glucose 88 mg/dL (70-105); Lactate Dehydrogenase 212 U/L (135-225); Phosphorous 3.3 mg/dL (2.5-4.5); Triglycerides 73 mg/dL (<150); Uric Acid 4.7 mg/dL (2.5-8.0)
[2021-09-06] MEDS: MUPIROCIN OINT 2% 22GM NARES SCH ×2 (08:22→20:14)
[2021-09-06 08:27] LABS: Anisocytosis 2+ (None Seen); Band Neutrophils % 6 % (0-10); Eosinophils % (Manual) 7 % (0-7); Lymphocytes % 45 % (15-49); Microcytosis 1+ (None Seen); Monocytes % (Manual) 28 % (1-12); Platelet Estimate NORMAL (Normal); RBC Morphology ABNORMAL (Normal); Reactive Lymphocytes 2 % (0-2); Segmented Neutrophils % 12 % (38-78)
[2021-09-06] MEDS ORDERED: PHENYLephrine 1 MG/10 ML SYRINGE (ANEST) ONE (08:43)
[2021-09-06] MEDS ORDERED: MAGNESIUM SULFATE 2 GM/50 ML BAG IV ONE (08:43)
[2021-09-06] MEDS ORDERED: ONDANSETRON 4 MG/2 ML VIAL ONE (08:43)
[2021-09-06] MEDS ORDERED: PROPOFOL 200 MG/20 ML VIAL IV ONE (08:43)
[2021-09-06] MEDS ORDERED: KETAMINE 50 MG/ML Syringe (ANEST) IV ONE (08:43)
[2021-09-06] MEDS ORDERED: GLYCOPYRROLATE 0.2 MG/ML VIAL IV ONE (08:43)
[2021-09-06] MEDS ORDERED: LIDOCAINE HCL/PF 100 MG/5 ML SYRINGE IV ONE (08:43)
[2021-09-06] MEDS ORDERED: DEXAMETHASONE 10 MG/ML VIAL ONE (08:43)
[2021-09-06] MEDS: VANCOMYCIN 1 GM VIAL TOPICAL SCH (09:03)
[2021-09-06] MEDS ORDERED: BENZOCAINE/MENTHOL 1 LOZENGE PO PRN (09:05)
[2021-09-06] MEDS ORDERED: MEPERIDINE 25 MG/ML VIAL IV PRN (09:05)
[2021-09-06] MEDS ORDERED: METOPROLOL TARTRATE 5 MG/5 ML VIAL IV PRN (09:05)
[2021-09-06] MEDS ORDERED: LACTATED RINGERS 250 ML IV PRN (09:05)
[2021-09-06] MEDS ORDERED: morphine 2 MG/ML VIAL IV PRN (09:05)
[2021-09-06] MEDS ORDERED: LACTATED RINGERS 1,000 ML IV SCH (09:15)
[2021-09-06] MEDS ORDERED: ACETAMINOPHEN 1,000 MG/100 ML BAG IV SCH (09:15)
[2021-09-06] MEDS: fentaNYL 100 MCG/2 ML VIAL IV PRN ×2 (09:42→09:47)
[2021-09-06] MEDS: LEVOTHYROXINE 75 MCG TABLET PO SCH (09:53)
[2021-09-06] MEDS: OMEPRAZOLE 20 MG CAPSULE PO SCH (09:53)
[2021-09-06] MEDS: ASCORBIC ACID 500 MG TABLET PO SCH (09:54)
[2021-09-06] MEDS: ENOXAPARIN 40 MG/0.4 ML SYRINGE SQ SCH (09:54)
[2021-09-06] MEDS: MULTIVIT,THER IRON,CA,FA & MIN 1 TABLET PO SCH (09:54)
[2021-09-06] MEDS: VITAMIN B COMPLEX 1 CAPSULE PO SCH (09:54)
[2021-09-06] MEDS: DOCUSATE SODIUM 100 MG CAPSULE PO SCH ×2 (09:54→20:14)
[2021-09-06] MEDS: VITAMIN D3 1,000 UNIT TABLET PO SCH (09:54)
--- NOTE | 2021-09-06 10:10 | Brief Operative Note ---
Brief Operative Note Date of procedure: 09/06/21 Pre-op diagnosis: Right leg cellulitis Post-op diagnosis: same Procedure: Incision and drainage of right leg with debridement Grafts/Implants: No Anesthesia: GETA Complications: none Surgeon: Benjamin Edouard Estimated blood loss (cc): 50 Specimens Removed/Pathology: other (Deep culture) Condition: stable Disposition: floor
[2021-09-06] MEDS ORDERED: ACETAMINOPHEN 850 MG/85 ML BAG IV ONE (10:15)
--- NOTE | 2021-09-06 10:26 | Operative Note ---
DATE OF OPERATION: 09/06/2021 PREOPERATIVE DIAGNOSIS: Cellulitis, right leg. POSTOPERATIVE DIAGNOSIS: Cellulitis, right leg. PROCEDURE: Drainage of the right leg with debridement. SURGEON: Benjamin Edouard DPM. IMPLANTS: None. ANESTHESIA: GETA. COMPLICATIONS: None. BLOOD LOSS: 50 mL. SPECIMEN: Deep tissue culture. CONDITION: Stable. DISPOSITION: PACU and floor. PROCEDURE IN DETAIL: The patient was brought to the operating room and placed on the operating table in supine position. Right lower extremity was scrubbed, prepped, and draped in the usual aseptic fashion. General anesthesia was established. Attention was directed to the right leg where there was seen to be two necrotic lesions approximately 2 cm in diameter directly lateral to the fibula. Careful sharp and blunt dissection was used to remove these two lesions to fresh bleeding tissue. There was some purplish-red discoloration associated with the cellulitis in this region. Deep tissue fasciotomy was performed through the deep fascia and the syndesmosis. The area was then irrigated with pulse lavage. Deep culture was taken and a gram of vancomycin powder was packed into these areas. Tissue bleeding was excellent. Area was packed with Betadine-soaked iodine gauze, and 4 x 4s, Kerlix, and Tarun wrap were applied. The patient tolerated the procedure and anesthesia well. She will be transferred back to the med/surg floor when she is discharged from the postoperative care unit for continued antibiotic therapy and evaluation of wound. [id number] Job ID: [id number] Doc ID: [id number] Benjamin Edouard DPM
[2021-09-06] MEDS: VANCOMYCIN 1,000 MG in 0.9 % SODIUM CHLORIDE 250 ML IV SCH (11:41)
[2021-09-06] MEDS ORDERED: MUPIROCIN OINT 2% 22GM NARES SCH (21:00)
[2021-09-07] MEDS: 0.9 % SODIUM CHLORIDE 10 ML SYRINGE IV SCH ×3 (04:19→20:39)
[2021-09-07 06:58] LABS: Hematocrit 34.8 % (34.1-44.9); Mean Cell Volume 75.7 fL (80.0-100.0); Mean Corpuscular HGB Conc 31.6 g/dL (31.0-36.0); Mean Platelet Volume 10.2 fL (7.4-10.4); Platelet Count 194 K/mcL (140-440); Red Cell Distribution Width 18.8 % (11.5-14.5)
--- NOTE | 2021-09-07 07:40 | Internal Med Progress Note ---
SUBJECTIVE Subjective Patient information: Note initiated : 09/07/21 at 7:39 am Service Date, if different from initiated Date: [] Patient: Cyndie Carr a 71 y/o F admitted on 09/05/21 for infected wound. Chief Complaint: [] Interval history: History of present illness: Ms. Carr is a 71 year old F Patient presents with right ankle redness and swelling. Patient states she first saw her primary care doctor almost a week and half ago and was prescribed an antibiotic. 4 days later on [address] [facility] ER. She was instructed to finish the course of antibiotics. She states she believes she was bitten by a bug or possibly scratched her skin and states that she had 2 little black spots when she first presented to the doctor and then when she went to [place] ER they were larger. Patient states that her redness although seems to have improved a little bit she has had increased swelling and increased pain. The black spots on her lateral ankle have enlarged. Patient denies fever chills. 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 09/06 Patient not postop I&D. Tolerated procedure well. Patient comfortable in bed. No overnight event or new complaints. Chronic cough. 09/07 Feeling well. No overnight or new complaints. Pending final wound cultures. Review of Systems: denies headache/fever/chills/nausea/vomiting/chest or abdominal pain/diarrhea. Otherwise see above. Constitutional Vitals: Vital Signs Temp Pulse Resp BP Pulse Ox 97.2 F 65 16 101/57 99 09/07/21 04:00 09/07/21 04:00 09/07/21 04:00 09/07/21 04:00 09/07/21 04:00 Period Temp Pulse Resp BP Sys/Davila Pulse Ox Last 24 Hr 97.1 F-98.3 F 58-79 10-18 101-145/57-88 90-100 Intake and Output 09/06/21 09/07/21 09/07/21 21:59 05:59 13:59 Intake Total 1840 150 Output Total 1050 900 Balance 790 -750 Weight 55.14 kg Intake & Output: Intake & Output 09/06/21 09/07/21 09/07/21 21:59 05:59 13:59 Intake Total 1840 150 Output Total 1050 900 Balance 790 -750 Weight 55.14 kg Intake: Oral 1840 150 Output: Void Amount 1050 900 Estimated Blood Loss 0 Other: Meal Dinner Percent of Meal Consumed 100% Urine Appearance Clear Urine Color Bright Yellow Stool Consistency Loose # Voids 1 Exam: General: Alert, Awake, No acute Distress Eyes/N/T: EOMI, , Head/Neck: neck supple, CV: RRR, No murmurs, Pulm: Clear b/l, no wheezing/rhonchi/rales Abd: soft, nontender, +BS x4 Ext: no clubbing/cyanosis/edema to LLE. Right ankle/foot in dressings Neuro: Alert, no focal deficits, moves all extremities, Skin: warm/dry OBJ DATA Labs CBC & Chem 7: 09/07/21 05:27 09/06/21 05:51 Labs: Abnormal Lab Results 09/07/21 09/06/21 09/06/21 05:27 05:51 05:51 WBC 2.0 L 1.7 L Hgb 11.0 L 10.9 L MCV 75.7 L 76.5 L MCH 23.9 L 23.5 L MCHC 30.8 L RDW 18.8 H 19.1 H Neut % (Auto) [place] % (Auto) Lymph # (Auto) Seg Neutrophils % 12 L Monocytes % (Manual) 28 H Absolute Neutrophils RBC Morphology Abnormal A Anisocytosis 2+ A Microcytosis 1+ A Anion Gap Creatinine 0.4 L Calcium 8.5 L C-Reactive Protein 2.00 H Globulin Albumin/Globulin Ratio 0.9 L 09/05/21 09/05/21 10:10 10:10 WBC 1.6 L Hgb MCV 77.0 L MCH 24.3 L MCHC RDW 19.2 H Neut % (Auto) 14.8 L [place] % (Auto) 33.3 H Lymph # (Auto) 0.73 L Seg Neutrophils % Monocytes % (Manual) Absolute Neutrophils 0.23 L* RBC Morphology Anisocytosis Microcytosis Anion Gap 5.0 L Creatinine 0.5 L Calcium 8.4 L C-Reactive Protein 1.90 H Globulin 4.0 H Albumin/Globulin Ratio 0.9 L Meds: Medications Acetaminophen (Acetaminophen 325 Mg Tablet) 650 mg PO Q6HP PRN; Protocol PRN Reason: Per Pain Protocol/Fever > 101 Hydrocodone Bitart/Acetaminophen (Hydrocodone/Apap 5/325mg Tablet) 1 tab PO Q4HP PRN PRN Reason: PAIN LEVEL 3-6 Albuterol/Ipratropium (Ipratropium/Albuterol 3 Ml Ampul.Neb) 3 ml NEB Q4HP PRN PRN Reason: Shortness Of Breath Ascorbic Acid (Ascorbic Acid 500 Mg Tablet) 500 mg PO DAILY [facility] Last Admin: 09/06/21 09:54 Dose: Not Given Documented by: Cefepime HCl (Cefepime 2 Gm Vial) 2 gm IV Q12H [facility]; Protocol Last Admin: 09/06/21 20:14 Dose: 2 gm Documented by: Docusate Sodium (Docusate Sodium 100 Mg Capsule) 100 mg PO BID [facility] Last Admin: 09/06/21 20:14 Dose: Not Given Documented by: Enoxaparin Sodium (Enoxaparin 40 Mg/0.4 Ml Syringe) 40 mg SQ DAILY [facility] Last Admin: 09/06/21 09:54 Dose: Not Given Documented by: Furosemide (Furosemide 20 Mg Tablet) 10 mg PO DAILYP PRN PRN Reason: Edema Potassium Chloride 40 meq/ (Dextrose) 520 mls @ 130 mls/hr IV UD PRN PRN Reason: Potassium < 3 Magnesium Sulfate (Magnesium Sulfate) 2 gm in 50 mls @ 50 mls/hr IV UD PRN PRN Reason: Magnesium </= 1.6 Vancomycin HCl 1,000 mg/ (Sodium Chloride) 250 mls @ 250 mls/hr IV Q24H [facility] Last Infusion: 09/06/21 12:41 Dose: Infused Documented by: Iron Carb/Multivit/[place]/Folic Acid (Multivit,Ther Iron,Ca,Fa & Min 1 Tablet) 1 tab PO DAILY [facility] Last Admin: 09/06/21 09:54 Dose: Not Given Documented by: Levothyroxine Sodium (Levothyroxine 75 Mcg Tablet) 75 mcg PO ACB [facility] Last Admin: 09/06/21 09:53 Dose: Not Given Documented by: Metoclopramide HCl (Metoclopramide 10 Mg/2 Ml Vial) 10 mg IV Q6HP PRN PRN Reason: Nausea And Vomiting Mupirocin (Mupirocin Oint 2% 22gm) 1 dose NARES BID [facility] Stop: 09/11/21 09:01 Last Admin: 09/06/21 20:14 Dose: 1 dose Documented by: Omeprazole (Omeprazole 20 Mg Capsule) 20 mg PO ACB [facility] Last Admin: 09/06/21 09:53 Dose: Not Given Documented by: Ondansetron HCl (Ondansetron 4 Mg/2 Ml Vial) 4 mg IV Q4HP PRN PRN Reason: Nausea And Vomiting Polyethylene Glycol (Polyethylene Glycol 3350 17 Gm Packet) 17 gm PO DAILYP PRN PRN Reason: Constipation Potassium Chloride (Potassium Chloride 20 Meq Tablet) 40 meq PO UD PRN PRN Reason: Potssium is 3-3.5 Potassium Chloride (Potassium Chloride 20 Meq Tablet) 40 meq PO UD PRN PRN Reason: Potassium < 3 Senna (Sennosides 1 Tablet) 2 tab PO DAILYP PRN PRN Reason: Constipation Sodium Chloride (0.9 % Sodium Chloride 10 Ml Syringe) 10 ml IV Q8 [facility] Last Admin: 09/07/21 04:19 Dose: 10 ml Documented by: Vancomycin HCl (Vancomycin Per Pharmacy) 1 order IV UD [facility]; Protocol Vancomycin HCl (Vancomycin 1 Gm Vial) 1 gm TOPICAL ONCE [facility]; Protocol Last Admin: 09/06/21 09:03 Dose: 1 gm Documented by: Vitamin B Complex (Vitamin B Complex 1 Capsule) 1 cap PO DAILY [facility] Last Admin: 09/06/21 09:54 Dose: Not Given Documented by: Vitamin D (Vitamin D3 1,000 Unit Tablet) 1,000 unit PO DAILY [facility] Last Admin: 09/06/21 09:54 Dose: Not Given Documented by: A/P Narrative A/P Narrative: A: *Right Ankle cellulitis with tissue necrosis: failed outpt abx. s/p I&D (09/06) *RA/Felty's syndrome w/chronic neutropenia: Follows with Dr. Mathur *Pulmonary fibrosis/bronchiectasis: Follows with Dr. Moss *h/o systolic(40/45)/diastolic(I) CHF: *HARMONY: *Hypothyroidism P: -Vanco, cefepime to rocephin , pending BC & mrsa screen (+) -Podiatry/wound following, -pt/ot -ppx: lovenox full code Time Spent With Patient Time: Total time spent is greater than 50% in coordination of care (as documented) at patient's floor/unit and/or counseling patient: QUALITY VTE Deep Vein Thrombosis/Pulmonary Embolism Present on Admission: No
[2021-09-07 08:12] LABS: Anisocytosis 3+ (None Seen); Band Neutrophils % 1 % (0-10); Eosinophils % (Manual) 2 % (0-7); Lymphocytes % 67 % (15-49); Microcytosis 1+ (None Seen); Monocytes % (Manual) 17 % (1-12); Platelet Estimate NORMAL (Normal); RBC Morphology ABNORMAL (Normal); Segmented Neutrophils % 13 % (38-78)
[2021-09-07] MEDS: VITAMIN B COMPLEX 1 CAPSULE PO SCH (08:15)
[2021-09-07] MEDS: LEVOTHYROXINE 75 MCG TABLET PO SCH (08:15)
[2021-09-07] MEDS: CEFEPIME 2 GM VIAL IV SCH (08:15)
[2021-09-07] MEDS: ASCORBIC ACID 500 MG TABLET PO SCH (08:15)
[2021-09-07] MEDS: OMEPRAZOLE 20 MG CAPSULE PO SCH (08:16)
[2021-09-07] MEDS: DOCUSATE SODIUM 100 MG CAPSULE PO SCH ×3 (08:16→20:38)
[2021-09-07] MEDS: MUPIROCIN OINT 2% 22GM NARES SCH ×2 (08:16→20:38)
[2021-09-07] MEDS: VITAMIN D3 1,000 UNIT TABLET PO SCH (08:17)
[2021-09-07] MEDS: MULTIVIT,THER IRON,CA,FA & MIN 1 TABLET PO SCH (08:17)
[2021-09-07] MEDS: ENOXAPARIN 40 MG/0.4 ML SYRINGE SQ SCH (08:19)
--- NOTE | 2021-09-07 11:03 | Discharge Summary ---
Discharge Provider Provider Patient information: Note initiated : 09/07/21 at 11:01 am Service Date, if different from initiated Date: [] Patient: Cyndie Carr 71 y/o F admitted on 09/05/21 for infected wound. Chief Complaint: [] Date of admission: 09/05/21 13:58 Discharge date: 09/08/21 Primary care physician: Kenia Desai DO Consults: 09/05/21 Consult to Physician [CONS] Stat Comment: Consulting Provider: Benjamin Edouard Reason For Exam: Physician to Consult Consult to Physician [CONS] Stat Comment: Consulting Provider: Thang Collier Reason For Exam: Physician to Consult Discharge Meds Discharge Medications Home Medications vitamin B complex 1 tab-cap PO QDAY 12/28/15 [History Confirmed 09/05/21 Last Taken 09/04/21] Acapella or flutter valve #1 ea 09/30/18 [Rx Confirmed 09/05/21 Last Taken Unknown] cholecalciferol (vitamin D3) 25 mg PO DAILY 12/21/19 [History Confirmed 09/05/21 Last Taken 09/04/21] qqdrjfzhnyao-Hs-ylsx-minerals 1 tab PO DAILY 12/21/19 [History Confirmed 09/05/21 Last Taken Unknown] ascorbate calcium (vitamin C) 500 mg tablet 500 mg PO QDAY 05/28/21 [History Confirmed 09/05/21 Last Taken 09/04/21] flaxseed oil 1,000 mg capsule 1,000 mg PO QDAY 05/28/21 [History Confirmed 09/05/21 Last Taken 09/04/21] ibuprofen 400 mg tablet 400 mg PO BID tab 06/03/21 [History Confirmed 09/05/21 Last Taken 09/04/21] omeprazole 20 mg capsule,delayed release 20 mg PO QDAY #30 cap 07/03/21 [Rx Confirmed 09/05/21 Last Taken 09/04/21] levothyroxine 75 mcg tablet 75 mcg PO QDAY #90 tab 08/19/21 [Rx Confirmed 09/05/21 Last Taken 09/05/21] furosemide 10 mg PO DAILYP PRN 09/05/21 [History Confirmed 09/05/21 Last Taken 08/29/21] linezolid 600 mg PO Q12H 10 Days #20 tab 09/07/21 [Rx Last Taken Unknown] COURSE Hospital Course Hospital course: History of present illness: Ms. Carr is a 71 year old F Patient presents with right ankle redness and swelling. Patient states she first saw her primary care doctor almost a week and half ago and was prescribed an antibiotic. 4 days later on 31 [address] to [facility] ER. She was instructed to finish the course of antibiotics. She states she believes she was bitten by a bug or possibly scratched her skin and states that she had 2 little black spots when she first presented to the doctor and then when she went to [place] ER they were larger. Patient states that her redness although seems to have improved a little bit she has had increased swelling and increased pain. The black spots on her lateral a nkle have enlarged. Patient denies fever chills. 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 09/06 Patient not postop I&D. Tolerated procedure well. Patient comfortable in bed. No overnight event or new complaints. Chronic cough. 09/07 Feeling well. No overnight or new complaints. Pending final wound cultures. 09/08 Doing well. No overnight event or new complaints. No growth on wound cultures or blood cultures. MRI screen positive. A: *Right Ankle cellulitis with tissue necrosis: failed outpt abx. s/p I&D (09/06) *RA/Felty's syndrome w/chronic neutropenia: Follows with Dr. Mathur *Pulmonary fibrosis/bronchiectasis: Follows with Dr. Moss *h/o systolic(40/45)/diastolic(I) CHF: *HARMONY: *Hypothyroidism Discharge diagnosis: Right ankle cellulitis with tissue necrosis Secondary discharge diagnosis: RA with Felty syndrome pulmonary fibrosis bronchiectasis history of heart failure Sleep apnea hypothyroidism Time Spent with Patient Time attestation: Total time spent providing and/or coordinating discharge ser vices: EXAM Constitutional Vitals: Temp Pulse Resp BP Pulse Ox 97.6 F 72 18 114/64 95 09/07/21 07:58 09/07/21 07:58 09/07/21 07:58 09/07/21 07:58 09/07/21 07:58 Discharge Data Data Completed and Pending Labs on day of discharge: Labs from last 24 hours 09/07/21 09/07/21 08:57 05:27 WBC 2.0 L RBC 4.60 Hgb 11.0 L Hct 34.8 MCV 75.7 L MCH 23.9 L MCHC 31.6 RDW 18.8 H Plt Count 194 MPV 10.2 Seg Neutrophils % 13 L Band Neutrophils % 1 Lymphocytes % 67 H Monocytes % (Manual) 17 H Eosinophils % (Manual) 2 Platelet Estimate Normal RBC Morphology Abnormal A Anisocytosis 3+ A Microcytosis 1+ A Vancomycin Trough 6.9 Preliminary micro results at discharge 09/06/21 10:31 Anaerobic Culture - Preliminary Leg - Right 09/06/21 11:26 Gram Stain - Preliminary Leg - Right Wound Culture - Preliminary Discharge Plan Patient/Caregiver Discharge Instructions Activity: increase activity as tolerated Diet: Regular Diet Prescriptions: New linezolid 600 mg tablet 600 mg PO Q12H 10 Days Qty: 20 RF: 0 Continued omeprazole 20 mg capsule,delayed release(DR/EC) 20 mg PO QDAY Qty: 30 RF: 5 levothyroxine 75 mcg tablet 75 mcg PO QDAY Qty: 90 RF: 0 vitamin B complex [B Complex-Vitamin B12] tablet 1 tab-cap PO QDAY RF: 0 cholecalciferol (vitamin D3) 25 mg PO DAILY RF: 0 whlzbkcmlegg-Ik-rbdc-minerals tablet 1 tab PO DAILY RF: 0 (DME) Acapella or flutter valve Qty: 1 RF: 0 ascorbate calcium (vitamin C) 500 mg tablet 500 mg PO QDAY RF: 0 flaxseed oil 1,000 mg capsule 1,000 mg PO QDAY RF: 0 ibuprofen 400 mg tablet 400 mg PO BID RF: 0 furosemide 20 mg tablet 10 mg PO DAILYP PRN (Reason: edema) RF: 0 Follow Up Plan Follow up with: Benjamin Edouard DPM [Physician] - Kenia Desai DO [Primary Care Provider] - Patient Disposition: Home, Self-Care Prognosis: Fair Overall status at discharge: patient is progressing back to baseline Discharge Orders: Discharge Order (Routine); Ordered 09/08/21 Ordered By: Thang Morfin [facility] VTE Deep Vein Thrombosis/Pulmonary Embolism Present on Admission: No
[2021-09-07] MEDS: cefTRIAXone 2 GM in DEXTROSE 5% IN WATER 50 ML IV SCH (11:06)
[2021-09-07] MEDS: VANCOMYCIN 1,000 MG in 0.9 % SODIUM CHLORIDE 250 ML IV SCH ×3 (11:41→20:36)
[2021-09-07] MEDS: VANCOMYCIN 1 GM VIAL TOPICAL SCH (11:42)
[2021-09-08] MEDS: 0.9 % SODIUM CHLORIDE 10 ML SYRINGE IV SCH ×3 (04:34→20:32)
[2021-09-08] MEDS: ACETAMINOPHEN 325 MG TABLET PO PRN ×2 (04:45→13:26)
[2021-09-08] MEDS: LEVOTHYROXINE 75 MCG TABLET PO SCH (06:18)
[2021-09-08 07:05] LABS: Hematocrit 33.5 % (34.1-44.9); Hemoglobin 10.3 g/dL (11.2-15.7); Mean Cell Volume 76.5 fL (80.0-100.0); Mean Corpuscular HGB Conc 30.7 g/dL (31.0-36.0); Platelet Count 193 K/mcL (140-440); RBC 4.38 M/mcL (3.59-5.38); Red Cell Distribution Width 18.8 % (11.5-14.5); WBC 1.7 K/mcL (4.5-11.0)
[2021-09-08] MEDS: OMEPRAZOLE 20 MG CAPSULE PO SCH (07:13)
--- NOTE | 2021-09-08 07:46 | Internal Med Progress Note ---
SUBJECTIVE Subjective Patient information: Note initiated : 09/08/21 at 7:44 am Service Date, if different from initiated Date: [] Patient: Cyndie Carr a 71 y/o F admitted on 09/05/21 for infected wound. Chief Complaint: [] Interval history: History of present illness: Ms. Carr is a 71 year old F Patient presents with right ankle redness and swelling. Patient states she first saw her primary care doctor almost a week and half ago and was prescribed an antibiotic. 4 days later on 31 August she went to [facility] ER. She was instructed to finish the course of antibiotics. She states she believes she was bitten by a bug or possibly scratched her skin and states that she had 2 little black spots when she first presented to the doctor and then when she went to [place] ER they were larger. Patient states that her redness although seems to have improved a little bit she has had increased swelling and increased pain. The black spots on her lateral ankle have enlarged. Patient denies fever chills. 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 09/06 Patient not postop I&D. Tolerated procedure well. Patient comfortable in bed. No overnight event or new complaints. Chronic cough. 09/07 Feeling well. No overnight or new complaints. Pending final wound cultures. 09/08 Doing well. No overnight event or new complaints. No growth on wound cultures or blood cultures. MRI screen positive. Review of Systems: denies headache/fever/chills/nausea/vomiting/chest or abdominal pain/diarrhea. Otherwise see above. Constitutional Vitals: Vital Signs Temp Pulse Resp BP Pulse Ox 98.6 F 66 18 104/57 97 09/08/21 04:00 09/08/21 04:00 09/08/21 04:00 09/08/21 04:00 09/08/21 04:00 Period Temp Pulse Resp BP Sys/Davila Pulse Ox Last 24 Hr 97.1 F-98.6 F 60-75 16-20 91-126/50-64 91-99 Intake and Output 09/07/21 09/08/21 09/08/21 21:59 05:59 13:59 Intake Total 1500 300 Output Total 1100 700 Balance 400 -400 Weight 55.61 kg Intake & Output: Intake & Output 10/23/21 10/24/21 10/24/21 21:59 05:59 13:59 Intake Total 1500 300 Output Total 1100 700 Balance 400 -400 Weight 55.61 kg Intake: IV 250 Vancomycin 1,000 mg In Sodium 250 Chloride 0.9% 250 ml @ 250 mls/ hr IV Q12H [facility] Rx#:[id number] Oral 1250 300 Output: Void Amount 1100 700 Other: Meal Dinner Percent of Meal Consumed 75% Feeding Ability Independent Stool Size Small Moderate Stool Color Brown Brown Stool Consistency Formed Normal for Patient # Bowel Movements 1 1 Exam: General: Alert, Awake, No acute Distress Eyes/N/T: EOMI, , Head/Neck: neck supple, CV: RRR, No murmurs, Pulm: Clear b/l, no wheezing/rhonchi/rales Abd: soft, nontender, +BS x4 Ext: no clubbing/cyanosis/edema to LLE. Right ankle/foot in dressings Neuro: Alert, no focal deficits, moves all extremities, Skin: warm/dry OBJ DATA Labs CBC & Chem 7: 09/08/21 05:29 09/06/21 05:51 Labs: Abnormal Lab Results 09/08/21 09/07/21 09/06/21 05:29 05:27 05:51 WBC 1.7 L 2.0 L Hgb 10.3 L 11.0 L Hct 33.5 L MCV 76.5 L 75.7 L MCH 23.5 L 23.9 L MCHC 30.7 L RDW 18.8 H 18.8 H Neut % (Auto) Kay % (Auto) Lymph # (Auto) Seg Neutrophils % 13 L Lymphocytes % 67 H Monocytes % (Manual) 17 H Absolute Neutrophils RBC Morphology Abnormal A Anisocytosis 3+ A Microcytosis 1+ A Anion Gap Creatinine 0.4 L Calcium 8.5 L C-Reactive Protein 2.00 H Globulin Albumin/Globulin Ratio 0.9 L 09/06/21 09/05/21 09/05/21 05:51 10:10 10:10 WBC 1.7 L 1.6 L Hgb 10.9 L Hct MCV 76.5 L 77.0 L MCH 23.5 L 24.3 L MCHC 30.8 L RDW 19.1 H 19.2 H Neut % (Auto) 14.8 L Kay % (Auto) 33.3 H Lymph # (Auto) 0.73 L Seg Neutrophils % 12 L Lymphocytes % Monocytes % (Manual) 28 H Absolute Neutrophils 0.23 L* RBC Morphology Abnormal A Anisocytosis 2+ A Microcytosis 1+ A Anion Gap 5.0 L Creatinine 0.5 L Calcium 8.4 L C-Reactive Protein 1.90 H Globulin 4.0 H Albumin/Globulin Ratio 0.9 L Meds: Medications Acetaminophen (Acetaminophen 325 Mg Tablet) 650 mg PO Q6HP PRN; Protocol PRN Reason: Per Pain Protocol/Fever > 101 Last Admin: 09/08/21 04:45 Dose: 650 mg Documented by: Hydrocodone Bitart/Acetaminophen (Hydrocodone/Apap 5/325mg Tablet) 1 tab PO Q4HP PRN PRN Reason: PAIN LEVEL 3-6 Albuterol/Ipratropium (Ipratropium/Albuterol 3 Ml Ampul.Neb) 3 ml NEB Q4HP PRN PRN Reason: Shortness Of Breath Ascorbic Acid (Ascorbic Acid 500 Mg Tablet) 500 mg PO DAILY SARAH Last Admin: 09/07/21 08:15 Dose: 500 mg Documented by: Docusate Sodium (Docusate Sodium 100 Mg Capsule) 100 mg PO BID SARAH Last Admin: 09/07/21 20:38 Dose: 100 mg Documented by: Enoxaparin Sodium (Enoxaparin 40 Mg/0.4 Ml Syringe) 40 mg SQ DAILY SARAH Last Admin: 09/07/21 08:19 Dose: Not Given Documented by: Furosemide (Furosemide 20 Mg Tablet) 10 mg PO DAILYP PRN PRN Reason: Edema Potassium Chloride 40 meq/ (Dextrose) 520 mls @ 130 mls/hr IV UD PRN PRN Reason: Potassium < 3 Magnesium Sulfate (Magnesium Sulfate) 2 gm in 50 mls @ 50 mls/hr IV UD PRN PRN Reason: Magnesium </= 1.6 Ceftriaxone Sodium 2 gm/ (Dextrose) 50 mls @ 100 mls/hr IV DAILY [facility]; Protocol Last Admin: 09/07/21 11:06 Dose: Not Given Documented by: Vancomycin HCl 1,000 mg/ (Sodium Chloride) 250 mls @ 250 mls/hr IV Q12H SARAH Last Infusion: 09/07/21 21:55 Dose: Infused Documented by: Iron Carb/Multivit/Douglas/Folic Acid (Multivit,Ther Iron,Ca,Fa & Min 1 Tablet) 1 tab PO DAILY SARAH Last Admin: 09/07/21 08:17 Dose: 1 tab Documented by: Levothyroxine Sodium (Levothyroxine 75 Mcg Tablet) 75 mcg PO ACB [facility] Last Admin: 09/08/21 06:18 Dose: 75 mcg Documented by: Metoclopramide HCl (Metoclopramide 10 Mg/2 Ml Vial) 10 mg IV Q6HP PRN PRN Reason: Nausea And Vomiting Mupirocin (Mupirocin Oint 2% 22gm) 1 dose NARES BID [facility] Stop: 09/11/21 09:01 Last Admin: 09/07/21 20:38 Dose: 1 dose Documented by: Omeprazole (Omeprazole 20 Mg Capsule) 20 mg PO ACB [facility] Last Admin: 09/08/21 07:13 Dose: Not Given Documented by: Ondansetron HCl (Ondansetron 4 Mg/2 Ml Vial) 4 mg IV Q4HP PRN PRN Reason: Nausea And Vomiting Polyethylene Glycol (Polyethylene Glycol 3350 17 Gm Packet) 17 gm PO DAILYP PRN PRN Reason: Constipation Potassium Chloride (Potassium Chloride 20 Meq Tablet) 40 meq PO UD PRN PRN Reason: Potssium is 3-3.5 Potassium Chloride (Potassium Chloride 20 Meq Tablet) 40 meq PO UD PRN PRN Reason: Potassium < 3 Senna (Sennosides 1 Tablet) 2 tab PO DAILYP PRN PRN Reason: Constipation Sodium Chloride (0.9 % Sodium Chloride 10 Ml Syringe) 10 ml IV Q8 [facility] Last Admin: 09/08/21 04:34 Dose: 10 ml Documented by: Vancomycin HCl (Vancomycin Per Pharmacy) 1 order IV UD [facility]; Protocol Vitamin B Complex (Vitamin B Complex 1 Capsule) 1 cap PO DAILY [facility] Last Admin: 09/07/21 08:15 Dose: 1 cap Documented by: Vitamin D (Vitamin D3 1,000 Unit Tablet) 1,000 unit PO DAILY [facility] Last Admin: 09/07/21 08:17 Dose: 1,000 unit Documented by: A/P Narrative A/P Narrative: A: *Right Ankle cellulitis with tissue necrosis: failed outpt abx. s/p I&D (09/06) *RA/Felty's syndrome w/chronic neutropenia: Follows with Dr. Mathur *Pulmonary fibrosis/bronchiectasis: Follows with Dr. Moss *h/o systolic(40/45)/diastolic(I) CHF: *HARMONY: *Hypothyroidism P: -Vanco, Rocephin , pending BC & mrsa screen (+) - likely d/c on zyvox -Podiatry/wound following, -pt/ot -ppx: lovenox full code Time Spent With Patient Time: Total time spent is greater than 50% in coordination of care (as documented) at patient's floor/unit and/or counseling patient: QUALITY VTE Deep Vein Thrombosis/Pulmonary Embolism Present on Admission: No
[2021-09-08 07:47] LABS: Anisocytosis 2+ (None Seen); Band Neutrophils % 6 % (0-10); Eosinophils % (Manual) 11 % (0-7); Lymphocytes % 44 % (15-49); Microcytosis 1+ (None Seen); Monocytes % (Manual) 30 % (1-12); Platelet Estimate NORMAL (Normal); RBC Morphology ABNORMAL (Normal); Reactive Lymphocytes 2 % (0-2); Segmented Neutrophils % 7 % (38-78)
[2021-09-08] MEDS: MULTIVIT,THER IRON,CA,FA & MIN 1 TABLET PO SCH (08:00)
[2021-09-08] MEDS: VITAMIN D3 1,000 UNIT TABLET PO SCH (08:00)
[2021-09-08] MEDS: ASCORBIC ACID 500 MG TABLET PO SCH (08:00)
[2021-09-08] MEDS: VITAMIN B COMPLEX 1 CAPSULE PO SCH (08:00)
[2021-09-08] MEDS: MUPIROCIN OINT 2% 22GM NARES SCH ×2 (08:01→20:32)
[2021-09-08] MEDS: ENOXAPARIN 40 MG/0.4 ML SYRINGE SQ SCH (08:17)
[2021-09-08] MEDS: cefTRIAXone 2 GM in DEXTROSE 5% IN WATER 50 ML IV SCH (08:47)
[2021-09-08] MEDS: DOCUSATE SODIUM 100 MG CAPSULE PO SCH ×2 (08:47→20:33)
[2021-09-08] MEDS: VANCOMYCIN 1,000 MG in 0.9 % SODIUM CHLORIDE 250 ML IV SCH ×2 (10:00→20:33)
[2021-09-09] MEDS: 0.9 % SODIUM CHLORIDE 10 ML SYRINGE IV SCH (04:45)
[2021-09-09] MEDS: OMEPRAZOLE 20 MG CAPSULE PO SCH (06:32)
[2021-09-09] MEDS: LEVOTHYROXINE 75 MCG TABLET PO SCH (07:21)
[2021-09-09] MEDS: MUPIROCIN OINT 2% 22GM NARES SCH (08:10)
[2021-09-09] MEDS: cefTRIAXone 2 GM in DEXTROSE 5% IN WATER 50 ML IV SCH (08:11)
[2021-09-09] MEDS: VITAMIN B COMPLEX 1 CAPSULE PO SCH (08:11)
[2021-09-09] MEDS: VITAMIN D3 1,000 UNIT TABLET PO SCH (08:11)
[2021-09-09] MEDS: ASCORBIC ACID 500 MG TABLET PO SCH (08:11)
[2021-09-09] MEDS: DOCUSATE SODIUM 100 MG CAPSULE PO SCH (08:11)
[2021-09-09] MEDS: MULTIVIT,THER IRON,CA,FA & MIN 1 TABLET PO SCH (08:11)
[2021-09-09] MEDS: ENOXAPARIN 40 MG/0.4 ML SYRINGE SQ SCH (08:16)
[2021-09-09] MEDS: VANCOMYCIN 1,000 MG in 0.9 % SODIUM CHLORIDE 250 ML IV SCH (12:37)
== END 2021-09-09 14:10 | disposition home or self-care (01) | DRG 603 ==
LOC: ED 09:46 → MEDSUR 13:58
PROVIDERS: ADMIT Internal Medicine; ATTEND Internal Medicine